=== PATIENT | male | born 1970 | race Two or more races ===

== ENCOUNTER 2024-10-21 19:57 | Emergency (ER) | payer OTHER ==
[~2024-10-21] VITALS: Ht 177.8 cm; Wt 90.7 kg
[2024-10-21] MEDS ORDERED: ACETAMINOPHEN ES 500 MG TABLET ONE (21:00)
[2024-10-21] MEDS ORDERED: IBUPROFEN 600 MG TABLET ONE (21:01)
[2024-10-21 21:03] VITALS: TEMP 98.5
[2024-10-21] MEDS: IBUPROFEN 600 MG TABLET PO ONE (21:03)
[2024-10-21] MEDS: ACETAMINOPHEN ES 500 MG TABLET PO ONE (21:03)
[2024-10-21 22:06] VITALS: BP 119/77; O2SAT 98
== END 2024-10-21 22:07 | disposition home or self-care (01) ==
LOC: ER 19:59
DX: S06.0X0A Concussion without loss of consciousness, initial encounter (principal); R07.89 Other chest pain; V43.62XA Car passenger injured in collision with other type car in traffic accident, initial encounter; Y93.89 Activity, other specified; Y92.488 Other paved roadways as the place of occurrence of the external cause; Y99.8 Other external cause status
CPT/HCPCS: 71046